=== PATIENT | male | born 1945 | race Caucasian/White ===

== ENCOUNTER 2020-04-08 10:12 | Emergency (ER) | payer MEDICARE, SELFPAY ==
[~2020-04-08] VITALS: Ht 165.1 cm; Wt 77.1 kg
[~2020-04-08 10:12] MED LIST: ALLO300 PO; AMIT25 PO; AMLO5 PO; AMYLIPPRO PO; ASPI325EC PO; ASPI81EC PO; COLE1 PO; FLUSAL1005; FURO20 PO; Fenofibrate200 MG PO; HYDMOR2 PO; ISOMON60ER PO; LISI20 PO; MULVITMIND PO; NAPR220 PO; NIFE30ER PO; OLME20 PO; OMEP20ER PO; OXYC1TAB11; Omeprazole20 M1; Vitamin D2000 UNIT PO; Zofran Odt4 MG SL
[2020-04-08 11:35] LABS: Source, Urine Clean Catch
[2020-04-08 11:39] LABS: Appearance, Urine Clear (Clear); Bilirubin, Urine Neg (Neg); Blood, Urine 1+ (Neg); Color, Urine Yellow (P-Yellow); Glucose Qualitative, Urine Neg (Neg); Ketones, Urine 1+ (Neg); Leukocyte Esterase, Urine 1+ (Neg); Nitrite, Urine Neg (Neg); Protein, Urine 1+ (Neg); Urobilinogen, Urine NORM (Normal)
[2020-04-08 11:43] LABS: BASOPHILS ABSOLUTE AUTO 0.05 K/mm3 (0.00-0.23); BASOPHILS PERCENT AUTO 1 % (0-2); EOSINOPHILS ABSOLUTE AUTO 0.35 K/mm3 (0.00-0.68); EOSINOPHILS PERCENT AUTO 5 % (0-6); Hematocrit 45.2 % (37.0-53.0); Hemoglobin 14.8 g/dL (13.5-17.5); IMMATURE GRAN ABSOLUTE AUTO 0.02 K/mm3 (0.00-0.10); IMMATURE GRAN PERCENT AUTO 0 % (0-1); LYMPHOCYTES ABSOLUTE AUTO 1.02 K/mm3 (0.84-5.20); LYMPHOCYTES PERCENT AUTO 14 % (21-46); MONOCYTES PERCENT AUTO 10 % (4-13); Mean Corpuscular HGB 30.3 pg (26.0-34.0); Mean Corpuscular HGB Conc 32.7 g/dL (31.5-36.5); Mean Corpuscular Volume 92 fL (80-100); Mean Platelet Volume 9.7 fL (9.1-12.4); NEUTROPHILS ABSOLUTE AUTO 4.93 K/mm3 (1.96-9.15); NEUTROPHILS PERCENT AUTO 70 % (41-73); Platelet Count 229 K/mm3 (150-400); RDW Coefficient Variation 13.2 % (11.7-14.2); RDW Standard Deviation 45.2 fL (35.1-46.3); Red Blood Cell Count 4.89 M/mm3 (4.30-5.90); White Blood Cell Count 7.07 K/mm3 (4.00-11.30)
[2020-04-08] MEDS ORDERED: CARBLEV25 SL (11:44)
[2020-04-08] MEDS ORDERED: AMLO5 PO (11:44)
[2020-04-08 11:45] LABS: Alanine Aminotransfer (ALT/SGP 13 U/L (12-78); Albumin, Blood 3.7 g/dL (3.4-5.0); Alk Phos 73 U/L (50-136); Anion Gap 7 mmol/L (6-16); Aspartate Aminotrans (AST/SGOT 41 U/L (12-37); Bilirubin, Total 0.7 mg/dL (0.1-1.0); Blood Urea Nitrogen 11 mg/dL (8-24); CO2, Blood 25 mmol/L (21-32); Calcium, Blood 9.2 mg/dL (8.5-10.1); Chloride, Blood 108 mmol/L (98-108); Creatinine, Blood 0.92 mg/dL (0.60-1.20); Globulin, Blood 3.7 g/dL (2.2-4.0); Glomerular Filtration Rate >60 (60-); Glucose, Blood 110 mg/dL (70-99); Potassium, Blood 3.7 mmol/L (3.5-5.5); Sodium, Blood 140 mmol/L (136-145); Total Protein, Blood 7.4 g/dL (6.4-8.2)
[2020-04-08] MEDS ORDERED: DULO60 PO (11:45)
[2020-04-08 11:53] LABS: Bacteria Few /hpf; Red Blood Cells, Urine 0-2 /hpf (0-2); Squamous Epithelial Cells Few /hpf (Few)
[2020-04-08] MEDS ORDERED: TAMS.4ER PO (12:34)
[2020-04-08] MEDS ORDERED: OXYACE7.5T PO (12:44)
== END 2020-04-08 13:55 | disposition home or self-care (01) ==
LOC: ER 10:12
PROVIDERS: Emergency Medicine
DX: N13.2 Hydronephrosis with renal and ureteral calculous obstruction (principal); E78.5 Hyperlipidemia, unspecified; I25.2 Old myocardial infarction; I25.810 Atherosclerosis of coronary artery bypass graft(s) without angina pectoris; Z88.0 Allergy status to penicillin; Z88.5 Allergy status to narcotic agent; Z79.82 Long term (current) use of aspirin; Z95.1 Presence of aortocoronary bypass graft; Z79.899 Other long term (current) drug therapy
CPT/HCPCS: 36415; 74177; 80053; 81001; 83690; 85025; 87086; 96360-59; 96361; 99284-25; A9270; J7030; Q9967

== ENCOUNTER 2020-08-31 14:55 | Emergency (ER) | payer MEDICARE ==
[~2020-08-31] VITALS: Ht 167.6 cm; Wt 72.6 kg
[~2020-08-31 14:55] MED LIST changes: +CARBLEV25 SL; +DULO60 PO; +OXYACE7.5T PO; +TAMS.4ER PO
[2020-08-31 15:40] LABS: BASOPHILS ABSOLUTE AUTO 0.01 K/mm3 (0.00-0.23); BASOPHILS PERCENT AUTO 0 % (0-2); EOSINOPHILS ABSOLUTE AUTO 0.04 K/mm3 (0.00-0.68); EOSINOPHILS PERCENT AUTO 1 % (0-6); Hematocrit 42.7 % (37.0-53.0); Hemoglobin 14.5 g/dL (13.5-17.5); IMMATURE GRAN ABSOLUTE AUTO 0.02 K/mm3 (0.00-0.10); IMMATURE GRAN PERCENT AUTO 1 % (0-1); LYMPHOCYTES ABSOLUTE AUTO 0.54 K/mm3 (0.84-5.20); LYMPHOCYTES PERCENT AUTO 14 % (21-46); MONOCYTES ABSOLUTE AUTO 0.26 K/mm3 (0.16-1.47); MONOCYTES PERCENT AUTO 7 % (4-13); Mean Corpuscular HGB 30.1 pg (26.0-34.0); Mean Corpuscular Volume 89 fL (80-100); NEUTROPHILS ABSOLUTE AUTO 2.97 K/mm3 (1.96-9.15); NEUTROPHILS PERCENT AUTO 77 % (41-73); Platelet Count 128 K/mm3 (150-400); RDW Coefficient Variation 14.1 % (11.7-14.2); RDW Standard Deviation 45.6 fL (35.1-46.3); Red Blood Cell Count 4.81 M/mm3 (4.30-5.90); White Blood Cell Count 3.84 K/mm3 (4.00-11.30)
[2020-08-31 15:59] LABS: Alanine Aminotransfer (ALT/SGP 20 U/L (12-78); Albumin, Blood 3.6 g/dL (3.4-5.0); Alk Phos 66 U/L (50-136); Anion Gap 8 mmol/L (6-16); Aspartate Aminotrans (AST/SGOT 82 U/L (12-37); Bilirubin, Total 0.8 mg/dL (0.1-1.0); Blood Urea Nitrogen 13 mg/dL (8-24); Bun/Creatinine Ratio 12.6 (12.0-20.0); CO2, Blood 25 mmol/L (21-32); Calcium, Blood 8.7 mg/dL (8.5-10.1); Chloride, Blood 99 mmol/L (98-108); Creatinine, Blood 1.03 mg/dL (0.60-1.20); Globulin, Blood 3.6 g/dL (2.2-4.0); Glomerular Filtration Rate >60 (60-); Glucose, Blood 100 mg/dL (70-99); Potassium, Blood 3.3 mmol/L (3.5-5.5); Sodium, Blood 132 mmol/L (136-145); Total Protein, Blood 7.2 g/dL (6.4-8.2)
[2020-08-31 16:59] LABS: Source, Urine Catheter
[2020-08-31 17:06] LABS: Appearance, Urine Clear (Clear); Blood, Urine 1+ (Neg); Color, Urine Amber (P-Yellow); Glucose Qualitative, Urine Neg (Neg); Ketones, Urine 1+ (Neg); Leukocyte Esterase, Urine 1+ (Neg); Nitrite, Urine Neg (Neg); Protein, Urine 2+ (Neg); Urobilinogen, Urine 2+ (Normal)
[2020-08-31 17:12] LABS: Bilirubin, Urine 1+ (Neg); Red Blood Cells, Urine 0-2 /hpf (0-2)
[2020-08-31 17:13] LABS: Bacteria Few /hpf; Mucus Light (0-Heavy); Squamous Epithelial Cells Rare /hpf (Few)
[2020-08-31] MEDS ORDERED: Cellcept500 MG PO (18:27)
[2020-08-31] MEDS ORDERED: DULOXETINE HCL60 M1 PO (18:29)
[2020-08-31] MEDS ORDERED: AMITRIPTYLINE H25 MG PO (18:29)
[2020-08-31] MEDS ORDERED: CARBIDOPA-LEVO1 EA15 PO (18:29)
[2020-08-31] MEDS ORDERED: Fenofibrate200 MG PO (18:30)
[2020-08-31] MEDS ORDERED: ALLO300 PO (18:30)
--- NOTE | 2020-08-31 18:41 | NUR ---
Received consultation to discuss options with pt and his family. Pt is a 75 year old with late stage Parkinson's disease who has been increasingly lethargic and SOB with poor appetite at home over the past several days. Today, the family decided to have him evaluated in the ED. The pt's POLST is DNR with limited. However, the family appears to be conflicted as to the best course of action. The pt's states she would like to take pt home, and pt appears to be leaning toward that option as well, with oxygen support, and a hospice consult. Family and pt have indicated they do not have a preference on hospice company, they just prefer the next available time for admission, which is understandable, given pt's current predicament. The pt and family do understand the patient is also welcome to stay at the hospital for support if needed. Will follow up in the am, and assist then if needed.
[2020-08-31] MEDS ORDERED: AMLODIPINE BESYL5 MG PO (18:45)
[2020-08-31] MEDS ORDERED: Aspir 8181 MG PO (18:46)
[2020-08-31] MEDS ORDERED: VITAMIN D31000 UNI1 PO (18:47)
[2020-08-31] MEDS ORDERED: OMEP20ER PO (18:48)
[2020-08-31] MEDS ORDERED: Macrobid 100 M100 MG PO (19:31)
[2020-08-31] MEDS ORDERED: DEXA6 PO (19:31)
--- NOTE | 2020-09-01 09:05 | NUR ---
Alberto was seen in the Emergency Dept last evening for increased lethargy, decreased appetite and increased SOB. He has late stage Parkinson's disease as well. He was diagnosed with Covid-19 and a UTI while in the ER. The pt has documented his wishes via POLST; DNR with [facility]. He returned home with family last evening with oxygen support, dexamethasone and antibiotics. Follow up phone call made this morning: Pt's Kristal reports pt is doing "much better" today. She states the 02 was delivered quickly last night, and pt slept well t/o the night with no reports of SOB. Kristal reports she will be following up via phone call with pt's PCP today. We discussed both Home Health and Hospice services and the services they offer, as patient and his may benefit from education, home safety evaluation and equipment recommendation, as well as ongoing increased layer of support. Kristal had questions about Covid quarantine time, so I [facility]. No further issues or concerns noted at this time, but Kristal does have Palliative Care contact information, and I encouraged her to reach out with further questions or concerns she or pt may have. She was very appreciative and verbalized understanding.
== END 2020-08-31 20:31 | disposition home or self-care (01) ==
LOC: ER 14:55
PROVIDERS: Physician Assistant
DX: U07.1 COVID-19 (principal); N39.0 Urinary tract infection, site not specified; B96.89 Other specified bacterial agents as the cause of diseases classified elsewhere; J98.4 Other disorders of lung; R09.02 Hypoxemia; R63.0 Anorexia; R94.31 Abnormal electrocardiogram [ECG] [EKG]; G20 Parkinson's disease; E78.5 Hyperlipidemia, unspecified; I25.2 Old myocardial infarction; I25.10 Atherosclerotic heart disease of native coronary artery without angina pectoris; Z95.1 Presence of aortocoronary bypass graft; Z88.0 Allergy status to penicillin; Z88.5 Allergy status to narcotic agent; Z87.891 Personal history of nicotine dependence; Z79.82 Long term (current) use of aspirin; Z79.899 Other long term (current) drug therapy
CPT/HCPCS: 36415; 71045; 80053; 81001; 83690; 84484; 85025; 87086; 93005; 93010; 96361; 96374; 96375; 99285-25; J1100; J2405; J7030